=== PATIENT | male | born 1985 | race Hispanic/Latino ===

== ENCOUNTER 2018-02-26 11:26 | Emergency (ER) | payer OTHER | END 2018-02-26 12:00 | disposition home or self-care (01) | LOC: EDH 11:26 | DX: J06.9 Acute upper respiratory infection, unspecified (principal); F41.9 Anxiety disorder, unspecified | CPT/HCPCS: 99281 ==

== ENCOUNTER 2018-03-07 11:28 | Emergency (ER) | payer OTHER ==
[2018-03-07] MEDS ORDERED: BENZONATATE 100 MG CAPSULE PO ONE (13:03)
== END 2018-03-07 15:39 | disposition home or self-care (01) ==
LOC: EDH 11:28
DX: R10.9 Unspecified abdominal pain (principal); R19.7 Diarrhea, unspecified; R05 Cough; F41.9 Anxiety disorder, unspecified; Z87.891 Personal history of nicotine dependence
CPT/HCPCS: 71045; 87804

== ENCOUNTER → 2018-10-05 | Outpatient (CLI) | payer MEDICAID | END | disposition home or self-care (01) | LOC: RAH 08:34 | PROVIDERS: ATTEND Internal Medicine | DX: K80.20 Calculus of gallbladder without cholecystitis without obstruction (principal); R16.0 Hepatomegaly, not elsewhere classified; K76.0 Fatty (change of) liver, not elsewhere classified | CPT/HCPCS: 76700 ==

== ENCOUNTER 2019-02-26 11:51 | Emergency (ER) | payer MEDICAID | END 2019-02-26 12:22 | disposition home or self-care (01) | LOC: EDH 11:51 | DX: J06.9 Acute upper respiratory infection, unspecified (principal); F41.9 Anxiety disorder, unspecified; Z87.891 Personal history of nicotine dependence ==

== ENCOUNTER 2019-04-10 12:49 | Emergency (ER) | payer MEDICAID ==
[2019-04-10 13:15] LABS: RAPID GROUP A STREP POSITIVE (NEGATIVE)
== END 2019-04-10 13:34 | disposition home or self-care (01) ==
LOC: EDH 12:49
DX: J02.0 Streptococcal pharyngitis (principal); F41.9 Anxiety disorder, unspecified
CPT/HCPCS: 36415; 71046; 76770; 80053; 81001; 83690; 85025; 87804; 87880; 96374; J1885

== ENCOUNTER 2019-04-10 23:06 | Emergency (ER) | payer MEDICAID ==
[2019-04-10 23:36] LABS: BILIRUBIN,URINE Negative (NEGATIVE); COLOR,URINE Yellow (YELLOW); GLUCOSE, URINE (UA) Negative (NEGATIVE); KETONES,URINE Negative (NEGATIVE); LEUKOCYTE ESTERASE ,URINE Negative (NEGATIVE); NITRATE,URINE Negative (NEGATIVE); OCCULT BLOOD,URINE Nonhemolyzed Trace (NEGATIVE); PROTEIN,URINE Negative (NEGATIVE)
[2019-04-10 23:41] LABS: APPEARANCE,URINE CLEAR (CLEAR)
[2019-04-11 00:01] LABS: BACTERIA,URINE Few /HPF (None Seen); CALCIUM OXALATE CRYSTALS,UR Moderate /LPF (None Seen); WBC,URINE 0-1 /HPF (0-1)
[2019-04-11] MEDS ORDERED: ACETAMINOPHEN EXTRA STRENGTH 500 MG TABLET ONE (00:05)
[2019-04-11 00:08] LABS: POTASSIUM 3.4 mmol/L (3.5-5.1)
[2019-04-11 00:10] LABS: ALBUMIN 3.8 g/dL (3.5-5.0); BILIRUBIN,TOTAL 0.5 mg/dL (0.2-1.0)
[2019-04-11 00:13] LABS: EOSINOPHILS % (AUTO) 3.4 % (0.0-8.0); HEMATOCRIT 44.8 % (42-54); LYMPHOCYTES % (AUTO) 25.7 % (21.0-51.0); MEAN CORPUSCULAR HEMOGLOBIN 28.2 pg (27.0-33.0); MEAN CORPUSCULAR HGB CONC 33.3 g/dL (32.0-36.0); MEAN CORPUSCULAR VOLUME 84.5 fL (79-99); MONOCYTES % (AUTO) 7.2 % (3.0-13.0); NEUTROPHILS % (AUTO) 62.7 % (40.0-77.0); PLATELET COUNT (AUTO) 201 K/uL (130-400); RED CELL DISTRIBUTION WIDTH 16.1 % (11.0-15.5); WHITE BLOOD COUNT (AUTO) 6.9 K/uL (4.8-10.8)
[2019-04-11] MEDS ORDERED: BENZONATATE 100 MG CAPSULE PO ONE (01:17)
[2019-04-11] MEDS ORDERED: KETOROLAC TROMETHAMINE 30MG/ML ONE (01:17)
== END 2019-04-11 02:28 | disposition home or self-care (01) ==
LOC: EDH 23:06
DX: J02.0 Streptococcal pharyngitis (principal); R10.9 Unspecified abdominal pain; F41.9 Anxiety disorder, unspecified
CPT/HCPCS: 36415; 71046; 76770; 80053; 81001; 83690; 85025; 96374; 99285; J1885

== ENCOUNTER 2019-06-07 15:38 | Emergency (ER) | payer MEDICAID ==
[2019-06-07] MEDS ORDERED: SODIUM CHLORIDE 0.9% 1000ML 1,000 ML IV ONE (17:01)
[2019-06-07 17:42] LABS: BASOPHILS % (AUTO) 0.6 % (0.0-5.0); EOSINOPHILS % (AUTO) 1.8 % (0.0-8.0); LYMPHOCYTES % (AUTO) 25.8 % (21.0-51.0); MEAN CORPUSCULAR HEMOGLOBIN 28.5 pg (27.0-33.0); MEAN CORPUSCULAR HGB CONC 33.3 g/dL (32.0-36.0); MEAN CORPUSCULAR VOLUME 85.6 fL (79-99); MONOCYTES % (AUTO) 6.8 % (3.0-13.0); NUCLEATED RED BLOOD CELLS 0.3 % (0.0-0.19); PLATELET COUNT (AUTO) 303 K/uL (130-400); RED BLOOD CELL COUNT(AUTO) 5.61 MIL/uL (4.50-6.20); RED CELL DISTRIBUTION WIDTH 15.8 % (11.0-15.5)
[2019-06-07 17:59] LABS: CREATININE 0.8 mg/dL (0.5-1.5); POTASSIUM 3.2 mmol/L (3.5-5.1)
== END 2019-06-07 18:28 | disposition home or self-care (01) ==
LOC: EDH 15:38
DX: T67.5XXA Heat exhaustion, unspecified, initial encounter (principal); F41.9 Anxiety disorder, unspecified; Z87.891 Personal history of nicotine dependence; X58.XXXA Exposure to other specified factors, initial encounter; Y93.89 Activity, other specified; Y92.89 Other specified places as the place of occurrence of the external cause; Y99.8 Other external cause status
CPT/HCPCS: 36415; 71045; 80048; 82948; 85025; 87804 ×2; 93005; 96360; 99285; J7030

== ENCOUNTER 2019-08-12 13:45 | Emergency (ER) | payer MEDICAID | END 2019-08-12 14:59 | disposition home or self-care (01) | LOC: EDH 13:45 | DX: J20.9 Acute bronchitis, unspecified (principal); F41.9 Anxiety disorder, unspecified ==

== ENCOUNTER 2019-10-24 22:41 | Emergency (ER) | payer MEDICAID ==
[2019-10-25 00:09] LABS: BASOPHILS % (AUTO) 0.7 % (0.0-5.0); EOSINOPHILS % (AUTO) 5.5 % (0.0-8.0); HEMATOCRIT 47.7 % (42-54); MEAN CORPUSCULAR HGB CONC 32.1 g/dL (32.0-36.0); MEAN CORPUSCULAR VOLUME 84.3 fL (79-99); MONOCYTES % (AUTO) 9.2 % (3.0-13.0); NEUTROPHILS % (AUTO) 56.9 % (40.0-77.0); PLATELET COUNT (AUTO) 222 K/uL (130-400); RED BLOOD CELL COUNT(AUTO) 5.66 MIL/uL (4.50-6.20); RED CELL DISTRIBUTION WIDTH 14.8 % (11.0-15.5)
[2019-10-25] MEDS ORDERED: SODIUM CHLORIDE 0.9% 1000ML 1,000 ML IV ONE (00:14)
[2019-10-25] MEDS ORDERED: KETOROLAC TROMETHAMINE 30MG/ML ONE (00:14)
[2019-10-25 00:20] LABS: CREATININE 0.8 mg/dL (0.5-1.5); POTASSIUM 3.5 mmol/L (3.5-5.1)
[2019-10-25 00:26] LABS: ALBUMIN 3.8 g/dL (3.5-5.0); BILIRUBIN,TOTAL 0.5 mg/dL (0.2-1.0); TOTAL PROTEIN, SERUM 7.2 g/dL (6.0-8.3)
[2019-10-25] MEDS ORDERED: ORPHENADRINE CITRATE 30 MG/ML ML ONE (02:34)
[2019-10-25] MEDS ORDERED: LIDOCAINE 5% TOPICAL PATCH TP ONE (02:35)
== END 2019-10-25 03:03 | disposition home or self-care (01) ==
LOC: EDH 22:41
DX: S39.012A Strain of muscle, fascia and tendon of lower back, initial encounter (principal); M62.838 Other muscle spasm; F41.9 Anxiety disorder, unspecified; V80.010A Animal-rider injured by fall from or being thrown from horse in noncollision accident, initial encounter; Y93.52 Activity, horseback riding; Y92.89 Other specified places as the place of occurrence of the external cause; Y99.8 Other external cause status
CPT/HCPCS: 36415; 72131; 80053; 85025; 96374; 96375; 99285; J1885; J2360; J7030

== ENCOUNTER → 2019-11-04 | Outpatient (CLI) | payer MEDICAID | END | disposition home or self-care (01) | LOC: SLP 19:25 | PROVIDERS: ATTEND Internal Medicine | DX: G47.33 Obstructive sleep apnea (adult) (pediatric) (principal) | CPT/HCPCS: 95810 ==

== ENCOUNTER 2020-11-29 05:55 | Emergency (ER) | payer MEDICAID ==
[2020-11-29] MEDS ORDERED: ONDANSETRON HCL 4 MG/2 ML VIAL ONE (06:26)
[2020-11-29] MEDS ORDERED: PROCHLORPERAZINE EDISYLATE 10 MG/2 ML VIAL ONE (06:27)
[2020-11-29 06:34] LABS: BASOPHILS % (AUTO) 0.9 % (0.0-5.0); EOSINOPHILS % (AUTO) 2.7 % (0.0-8.0); HEMATOCRIT 48.4 % (42-54); LYMPHOCYTES % (AUTO) 47.4 % (21.0-51.0); MEAN CORPUSCULAR HEMOGLOBIN 27.9 pg (27.0-33.0); MEAN CORPUSCULAR HGB CONC 32.9 g/dL (32.0-36.0); MEAN CORPUSCULAR VOLUME 85.1 fL (79-99); MONOCYTES % (AUTO) 6.4 % (3.0-13.0); NEUTROPHILS % (AUTO) 41.2 % (40.0-77.0); PLATELET COUNT (AUTO) 202 K/uL (130-400); RED BLOOD CELL COUNT(AUTO) 5.69 MIL/uL (4.50-6.20); RED CELL DISTRIBUTION WIDTH 15.2 % (11.0-15.5)
[2020-11-29 06:40] LABS: APPEARANCE,URINE Clear (CLEAR); BILIRUBIN,URINE Negative (NEGATIVE); COLOR,URINE Yellow (YELLOW); GLUCOSE, URINE (UA) Negative (NEGATIVE); KETONES,URINE Negative (NEGATIVE); LEUKOCYTE ESTERASE ,URINE Negative (NEGATIVE); NITRATE,URINE Negative (NEGATIVE); OCCULT BLOOD,URINE Negative (NEGATIVE); PROTEIN,URINE Negative (NEGATIVE); UROBILINOGEN,URINE 0.2 mg/dL (0.2-1.0)
[2020-11-29 06:44] LABS: ALBUMIN 3.9 g/dL (3.5-5.0); BILIRUBIN,TOTAL 0.5 mg/dL (0.2-1.0); POTASSIUM 3.9 mmol/L (3.5-5.1); TOTAL PROTEIN, SERUM 7.3 g/dL (6.0-8.3)
[2020-11-29] MEDS ORDERED: FAMOTIDINE/PF 20 MG/2 ML VIAL IV ONE (06:52)
== END 2020-11-29 07:32 | disposition home or self-care (01) ==
LOC: EDH 05:55
DX: K29.00 Acute gastritis without bleeding (principal); K80.50 Calculus of bile duct without cholangitis or cholecystitis without obstruction; F41.9 Anxiety disorder, unspecified
CPT/HCPCS: 36415; 74176; 80053; 81003; 84484; 85025; 96374; 96375; 99284; J0780; J2405; J3490

== ENCOUNTER 2021-02-06 17:36 | Emergency (ER) | payer MEDICAID ==
[2021-02-06] MEDS ORDERED: ACETAMINOPHEN-CODEINE 300/30MG TAB ONE (18:05)
[2021-02-06] MEDS ORDERED: IBUPROFEN 600 MG TABLET ONE (18:05)
[2021-02-06] MEDS ORDERED: AMOXICILLIN 500 MG CAPSULE PO ONE (18:05)
== END 2021-02-06 19:09 | disposition home or self-care (01) ==
LOC: EDH 17:36
DX: K02.9 Dental caries, unspecified (principal); K04.7 Periapical abscess without sinus; F41.9 Anxiety disorder, unspecified; Z72.0 Tobacco use; E66.9 Obesity, unspecified; Z68.43 Body mass index [BMI] 50.0-59.9, adult

== ENCOUNTER 2021-04-04 10:12 | Emergency (ER) | payer MEDICAID ==
[~2021-04-04] VITALS: Ht 157.5 cm; Wt 136.1 kg
[2021-04-04 10:15] VITALS: BP 126/74
[2021-04-04] MEDS ORDERED: SOLU-MEDROL 125MG/2ML VIAL IM SCH (11:45)
[2021-04-04] MEDS ORDERED: SOLU-MEDROL 40MG/ML 1ML IVP ONE (11:45)
[2021-04-04] MEDS ORDERED: ALBU8.5H8 IH (12:17)
[2021-04-04] MEDS ORDERED: AZIT500T PO (12:17)
== END 2021-04-04 14:18 | disposition home or self-care (01) ==
LOC: EDH 10:12
DX: J40 Bronchitis, not specified as acute or chronic (principal); E78.5 Hyperlipidemia, unspecified; E66.9 Obesity, unspecified
CPT/HCPCS: 96372; 99283; J2920

== ENCOUNTER 2021-05-25 04:59 | Emergency (ER) | payer MEDICAID ==
[~2021-05-25] VITALS: Ht 162.6 cm; Wt 133.8 kg
[~2021-05-25 04:59] MED LIST: ALBU8.5H8 IH; AZIT500T PO
[2021-05-25 05:12] VITALS: BP 141/88
[2021-05-25] MEDS ORDERED: CIPR-278 PO (10:58)
[2021-05-25] MEDS ORDERED: ACET1TAB25 PO (10:58)
== END 2021-05-25 06:52 | disposition left against medical advice (07) ==
LOC: EDH 04:59
DX: R10.9 Unspecified abdominal pain (principal); Z53.21 Procedure and treatment not carried out due to patient leaving prior to being seen by health care provider

== ENCOUNTER 2021-05-25 07:39 | Emergency (ER) | payer MEDICAID ==
[~2021-05-25] VITALS: Ht 162.6 cm; Wt 133.8 kg
[2021-05-25 07:40] VITALS: BP 151/92
[2021-05-25] MEDS ORDERED: ONDANSETRON 4MG INJ IVP SCH (08:30)
[2021-05-25] MEDS ORDERED: KETOROLAC 30MG VIAL (30MG/ML) IV SCH (08:30)
[2021-05-25] MEDS ORDERED: MORPHINE 5 MG/ML VIAL (5MG OR GREATER DOSE) IV SCH (08:30)
[2021-05-25 09:04] LABS: APPEARANCE,URINE CLOUDY (CLEAR); BILIRUBIN,URINE NEGATIVE (NEGATIVE); COLOR,URINE YELLOW (YELLOW); GLUCOSE, URINE (UA) NEGATIVE (NEGATIVE); KETONES,URINE 5 mg/dL (NEGATIVE); LEUKOCYTE ESTERASE ,URINE NEGATIVE (NEGATIVE); NITRATE,URINE NEGATIVE (NEGATIVE); OCCULT BLOOD,URINE NEGATIVE (NEGATIVE); PROTEIN,URINE TRACE mg/dL (NEGATIVE); UROBILINOGEN,URINE 0.2 mg/dL (0.2-1.0)
[2021-05-25 09:12] VITALS: BP 141/85
[2021-05-25 09:30] LABS: CALCIUM OXALATE CRYSTALS,UR Few /LPF (None Seen); URIC ACID CRYSTALS,URINE Few /LPF (None Seen)
[2021-05-25 09:31] LABS: AMORPHOUS SEDIMENT,UR Moderate /LPF (None Seen); BACTERIA,URINE Few /HPF (None Seen)
[2021-05-25 09:32] LABS: RBC,URINE None Seen /HPF (0-1); WBC,URINE 0-1 /HPF (0-1)
[2021-05-25 10:32] LABS: BASOPHILS % (AUTO) 0.8 % (0.0-5.0); EOSINOPHILS % (AUTO) 0.7 % (0.0-8.0); HEMATOCRIT 47.4 % (42-54); LYMPHOCYTES % (AUTO) 21.7 % (21.0-51.0); MEAN CORPUSCULAR HEMOGLOBIN 27.8 pg (27.0-33.0); MEAN CORPUSCULAR HGB CONC 32.3 g/dL (32.0-36.0); MONOCYTES % (AUTO) 4.8 % (3.0-13.0); NEUTROPHILS % (AUTO) 70.8 % (40.0-77.0); PLATELET COUNT (AUTO) 229 K/uL (130-400); RED BLOOD CELL COUNT(AUTO) 5.51 MIL/uL (4.50-6.20); RED CELL DISTRIBUTION WIDTH 14.7 % (11.0-15.5); WHITE BLOOD COUNT (AUTO) 7.3 K/uL (4.8-10.8)
[2021-05-25 10:39] LABS: CREATININE 0.8 mg/dL (0.5-1.5); POTASSIUM 3.4 mmol/L (3.5-5.1)
[2021-05-25 10:47] LABS: ALBUMIN 3.8 g/dL (3.5-5.0); BILIRUBIN,TOTAL 0.4 mg/dL (0.2-1.0); TOTAL PROTEIN, SERUM 7.3 g/dL (6.0-8.3)
[2021-05-25] MEDS ORDERED: ACET1TAB25 PO (10:58)
[2021-05-25] MEDS ORDERED: CIPR-278 PO (10:58)
== END 2021-05-25 12:03 | disposition home or self-care (01) ==
LOC: EDH 07:39
DX: K42.9 Umbilical hernia without obstruction or gangrene (principal); E86.0 Dehydration; E66.01 Morbid (severe) obesity due to excess calories; Z68.43 Body mass index [BMI] 50.0-59.9, adult; Z79.1 Long term (current) use of non-steroidal anti-inflammatories (NSAID); Z79.899 Other long term (current) drug therapy
CPT/HCPCS: 36415; 74176; 80053; 81001; 83690; 85025; 96374; 96375; 99284; J1885; J2270; J2405

== ENCOUNTER 2021-11-08 02:51 | Emergency (ER) | payer MEDICAID ==
[~2021-11-08] VITALS: Ht 157.5 cm; Wt 131.5 kg
[~2021-11-08 02:51] MED LIST changes: +ACET1TAB25 PO; +CIPR-278 PO
[2021-11-08 03:41] LABS: APPEARANCE,URINE Cloudy (CLEAR); BILIRUBIN,URINE Negative (NEGATIVE); COLOR,URINE Yellow (YELLOW); GLUCOSE, URINE (UA) Negative (NEGATIVE); KETONES,URINE Trace mg/dL (NEGATIVE); LEUKOCYTE ESTERASE ,URINE Negative (NEGATIVE); NITRATE,URINE Negative (NEGATIVE); OCCULT BLOOD,URINE Negative (NEGATIVE); PROTEIN,URINE Negative (NEGATIVE)
[2021-11-08 03:51] LABS: BACTERIA,URINE None Seen /HPF (None Seen); RBC,URINE None Seen /HPF (0-1); WBC,URINE 0-1 /HPF (0-1)
[2021-11-08 03:52] LABS: MUCUS,URINE Moderate LPF (None Seen); SQUAMOUS EPITHELIAL CELL,UR Few /HPF (0-2)
[2021-11-08 03:53] LABS: HYALINE CASTS, URINE 0-1 /LPF (0-1 /LPF)
[2021-11-08] MEDS ORDERED: ONDANSETRON 4MG INJ ONE (03:56)
[2021-11-08] MEDS ORDERED: KETOROLAC 30MG VIAL (30MG/ML) ONE (03:56)
[2021-11-08] MEDS ORDERED: 0.9%NACL 1000ML 1,000 ML IV ONE ×2 (03:57→04:00)
[2021-11-08] MEDS ORDERED: KETOROLAC 30MG VIAL (30MG/ML) IV ONE (04:00)
[2021-11-08] MEDS ORDERED: ONDANSETRON 4MG INJ IVP ONE (04:00)
[2021-11-08 04:03] LABS: BASOPHILS % (AUTO) 0.9 % (0.0-5.0); HEMATOCRIT 48.5 % (42-54); LYMPHOCYTES % (AUTO) 35.5 % (21.0-51.0); MEAN CORPUSCULAR HEMOGLOBIN 28.2 pg (27.0-33.0); MEAN CORPUSCULAR HGB CONC 32.6 g/dL (32.0-36.0); MEAN CORPUSCULAR VOLUME 86.5 fL (79-99); MONOCYTES % (AUTO) 7.1 % (3.0-13.0); NEUTROPHILS % (AUTO) 53.9 % (40.0-77.0); PLATELET COUNT (AUTO) 219 K/uL (130-400); RED BLOOD CELL COUNT(AUTO) 5.61 MIL/uL (4.50-6.20); RED CELL DISTRIBUTION WIDTH 14.6 % (11.0-15.5); WHITE BLOOD COUNT (AUTO) 6.6 K/uL (4.8-10.8)
[2021-11-08 04:11] LABS: CREATININE 0.9 mg/dL (0.5-1.5); POTASSIUM 3.4 mmol/L (3.5-5.1)
[2021-11-08 04:15] LABS: BILIRUBIN,TOTAL 0.4 mg/dL (0.2-1.0); TOTAL PROTEIN, SERUM 7.3 g/dL (6.0-8.3)
[2021-11-08 05:15] VITALS: BP 145/84
[2021-11-08] MEDS ORDERED: ACET1TAB25 PO (05:50)
== END 2021-11-08 06:00 | disposition home or self-care (01) ==
LOC: EDH 02:51
DX: K80.70 Calculus of gallbladder and bile duct without cholecystitis without obstruction (principal); Z79.899 Other long term (current) drug therapy
CPT/HCPCS: 36415; 76705; 80053; 81001; 83690; 85025; 96361 ×2; 96374; 96375; 99284; J1885; J2405; J7030

== ENCOUNTER 2022-02-07 08:37 | Emergency (ER) | payer OTHER, MEDICAID ==
[~2022-02-07] VITALS: Ht 167.6 cm; Wt 136.1 kg
[~2022-02-07 08:37] MED LIST changes: +ACET-2079 PO; -ACET1TAB25 PO
[2022-02-07 08:53] VITALS: BP 132/75
[2022-02-07] MEDS ORDERED: ACET-2079 PO (09:16)
== END 2022-02-07 09:21 | disposition home or self-care (01) ==
LOC: EDH 08:37
DX: M25.512 Pain in left shoulder (principal); E66.01 Morbid (severe) obesity due to excess calories; Z68.42 Body mass index [BMI] 45.0-49.9, adult; V49.3XXA Car occupant (driver) (passenger) injured in unspecified nontraffic accident, initial encounter; Y93.89 Activity, other specified; Y92.89 Other specified places as the place of occurrence of the external cause; Y99.8 Other external cause status

== ENCOUNTER 2022-03-22 05:47 | Emergency (ER) | payer MEDICAID, OTHER ==
[~2022-03-22] VITALS: Ht 167.6 cm; Wt 131.5 kg
[2022-03-22 06:18] LABS: BASOPHILS % (AUTO) 0.7 % (0.0-5.0); EOSINOPHILS % (AUTO) 2.4 % (0.0-8.0); HEMATOCRIT 50.1 % (42-54); LYMPHOCYTES % (AUTO) 45.5 % (21.0-51.0); MEAN CORPUSCULAR HEMOGLOBIN 26.9 pg (27.0-33.0); MEAN CORPUSCULAR HGB CONC 31.7 g/dL (32.0-36.0); MEAN CORPUSCULAR VOLUME 84.9 fL (79-99); MONOCYTES % (AUTO) 7.1 % (3.0-13.0); NEUTROPHILS % (AUTO) 43.7 % (40.0-77.0); PLATELET COUNT (AUTO) 222 K/uL (130-400); RED CELL DISTRIBUTION WIDTH 14.6 % (11.0-15.5); WHITE BLOOD COUNT (AUTO) 6.7 K/uL (4.8-10.8)
[2022-03-22] MEDS ORDERED: ONDANSETRON 4MG INJ IVP ONE (06:30)
[2022-03-22] MEDS ORDERED: KETOROLAC 15MG/ML VIAL (15MG/ML) IV ONE (06:30)
[2022-03-22 06:35] LABS: CREATININE 0.9 mg/dL (0.5-1.5); POTASSIUM 3.8 mmol/L (3.5-5.1)
[2022-03-22 06:40] LABS: ALBUMIN 3.9 g/dL (3.5-5.0); BILIRUBIN,TOTAL 0.6 mg/dL (0.2-1.0); TOTAL PROTEIN, SERUM 7.2 g/dL (6.0-8.3)
[2022-03-22 06:41] LABS: APPEARANCE,URINE Clear (CLEAR); BILIRUBIN,URINE Negative (NEGATIVE); COLOR,URINE Yellow (YELLOW); GLUCOSE, URINE (UA) Negative (NEGATIVE); KETONES,URINE Negative (NEGATIVE); LEUKOCYTE ESTERASE ,URINE Negative (NEGATIVE); NITRATE,URINE Negative (NEGATIVE); OCCULT BLOOD,URINE Negative (NEGATIVE); PH,URINE 5.5 (5.0-8.0); PROTEIN,URINE Negative (NEGATIVE)
[2022-03-22] MEDS ORDERED: ACET-2079 PO (06:48)
[2022-03-22 06:49] VITALS: BP 139/88
== END 2022-03-22 06:59 | disposition home or self-care (01) ==
LOC: EDH 05:47
DX: K80.50 Calculus of bile duct without cholangitis or cholecystitis without obstruction (principal); Z79.1 Long term (current) use of non-steroidal anti-inflammatories (NSAID)
CPT/HCPCS: 36415; 76705; 80053; 81003; 83690; 85025; 96374; 96375; 99284; J1885; J2405

== ENCOUNTER 2022-04-14 03:40 | Emergency (ER) | payer MEDICAID ==
[2022-04-14] MEDS ORDERED: SOLU-MEDROL 125MG VIAL IVP ONE (03:41)
[2022-04-14] MEDS ORDERED: ALBUTEROL 0.083% 2.5 MG/3 ML INH IH ONE (03:41)
[2022-04-14] MEDS ORDERED: KCL 20 MEQ ERTAB PO ONE (03:41)
[2022-04-14] MEDS ORDERED: IPRATROPIUM/ALBUTEROL SULFATE 3 ML SOLUTION IH ONE (03:41)
[2022-04-14 12:25] LABS: BASOPHILS % (AUTO) 0.7 % (0.0-5.0); HEMATOCRIT 48.9 % (42-54); LYMPHOCYTES % (AUTO) 45.6 % (21.0-51.0); MEAN CORPUSCULAR HEMOGLOBIN 27.4 pg (27.0-33.0); MEAN CORPUSCULAR HGB CONC 32.7 g/dL (32.0-36.0); MEAN CORPUSCULAR VOLUME 83.7 fL (79-99); MONOCYTES % (AUTO) 5.9 % (3.0-13.0); PLATELET COUNT (AUTO) 220 K/uL (130-400); RED BLOOD CELL COUNT(AUTO) 5.84 MIL/uL (4.50-6.20); RED CELL DISTRIBUTION WIDTH 14.8 % (11.0-15.5); WHITE BLOOD COUNT (AUTO) 7.7 K/uL (4.8-10.8)
[2022-04-14 12:27] LABS: B-TYPE NATRIURETIC PEPTIDE 9 pg/mL (0-100)
[2022-04-14 12:28] LABS: ALBUMIN 3.8 g/dL (3.5-5.0); BILIRUBIN,TOTAL 0.5 mg/dL (0.2-1.0); CREATININE 0.8 mg/dL (0.5-1.5); MAGNESIUM 2.1 mg/dL (1.80-2.40); POTASSIUM 3.3 mmol/L (3.5-5.1); TOTAL PROTEIN, SERUM 6.9 g/dL (6.0-8.3)
[2022-04-15 09:21] LABS: ABG BASE EXCESS -2.4 mmol/L (-2.0-3.0); ABG HCO3 22.7 mmol/L (21.0-28.0); ABG OXYGEN SATURATION 84.2 % (95.0-99.0); ABG PCO2 40 mmHg (35-48)
== END 2022-04-14 08:04 | disposition left against medical advice (07) ==
LOC: EDH 03:40
DX: J96.91 Respiratory failure, unspecified with hypoxia (principal); Z20.822 Contact with and (suspected) exposure to COVID-19
CPT/HCPCS: 36415; 71045; 80053; 82550; 82803; 83735; 83880; 84484; 85025; 87635; 87804 ×2; 93005; 94640; 96374; 99285; C9803; J2930

== ENCOUNTER 2022-09-17 02:35 | Emergency (ER) | payer MEDICAID, OTHER ==
[~2022-09-17] VITALS: Ht 157.5 cm; Wt 135.2 kg
[~2022-09-17 02:35] MED LIST changes: +CILOOO OD; +DICL50TA9 PO; +TIZA4CAP8 PO
[2022-09-17 03:44] LABS: BASOPHILS % (AUTO) 0.5 % (0.0-5.0); HEMATOCRIT 45.5 % (42-54); LYMPHOCYTES % (AUTO) 31.6 % (21.0-51.0); MEAN CORPUSCULAR HEMOGLOBIN 27.6 pg (27.0-33.0); MEAN CORPUSCULAR HGB CONC 32.5 g/dL (32.0-36.0); MEAN CORPUSCULAR VOLUME 84.7 fL (79-99); MONOCYTES % (AUTO) 7.2 % (3.0-13.0); NEUTROPHILS % (AUTO) 56.9 % (40.0-77.0); PLATELET COUNT (AUTO) 196 K/uL (130-400); RED BLOOD CELL COUNT(AUTO) 5.37 MIL/uL (4.50-6.20); RED CELL DISTRIBUTION WIDTH 14.4 % (11.0-15.5); WHITE BLOOD COUNT (AUTO) 6.4 K/uL (4.8-10.8)
[2022-09-17 03:45] LABS: APPEARANCE,URINE CLEAR (CLEAR); BILIRUBIN,URINE NEGATIVE (NEGATIVE); COLOR,URINE LIGHT-YELLOW (YELLOW); GLUCOSE, URINE (UA) NEGATIVE (NEGATIVE); KETONES,URINE NEGATIVE (NEGATIVE); LEUKOCYTE ESTERASE ,URINE NEGATIVE Leu/uL (NEGATIVE); NITRATE,URINE NEGATIVE (NEGATIVE); OCCULT BLOOD,URINE NEGATIVE (NEGATIVE); PROTEIN,URINE NEGATIVE (NEGATIVE); UROBILINOGEN,URINE 0.2 mg/dL (0.2-1.0)
[2022-09-17 03:52] LABS: CREATININE 0.8 mg/dL (0.5-1.5); POTASSIUM 3.4 mmol/L (3.5-5.1)
[2022-09-17 03:57] LABS: ALBUMIN 3.5 g/dL (3.5-5.0); TOTAL PROTEIN, SERUM 6.9 g/dL (6.0-8.3)
[2022-09-17] MEDS ORDERED: ONDANSETRON 4MG INJ IVP ONE (04:00)
[2022-09-17] MEDS ORDERED: MORPHINE 2 MG SYG IVP ONE (04:00)
[2022-09-17] MEDS ORDERED: IBUP-1493 PO (06:21)
[2022-09-17] MEDS ORDERED: ONDA-104 PO (06:21)
[2022-09-17 06:37] VITALS: BP 125/78
== END 2022-09-17 06:42 | disposition home or self-care (01) ==
LOC: EDH 02:35
DX: K80.20 Calculus of gallbladder without cholecystitis without obstruction (principal); Z79.899 Other long term (current) drug therapy; Z98.890 Other specified postprocedural states
CPT/HCPCS: 99285; 96374; 76705; 96375; 82150; 82550; 84484; 80053; 83690; 85025; 81003; 36415; 93005; J2405

== ENCOUNTER 2022-10-13 19:27 | Emergency (ER) | payer BC, MEDICAID ==
[~2022-10-13] VITALS: Ht 162.6 cm; Wt 131.5 kg
[~2022-10-13 19:27] MED LIST changes: +IBUP-1493 PO; +ONDA-104 PO
[2022-10-13] MEDS ORDERED: IBUP-1493 PO (21:43)
[2022-10-13] MEDS ORDERED: AZIT500T2 PO (21:43)
[2022-10-13 22:02] VITALS: BP 124/72
== END 2022-10-13 22:04 | disposition home or self-care (01) ==
LOC: EDH 19:27
DX: J06.9 Acute upper respiratory infection, unspecified (principal); J02.9 Acute pharyngitis, unspecified; Z20.822 Contact with and (suspected) exposure to COVID-19
CPT/HCPCS: 99283; 87635; 87880; 87804 ×2; C9803

== ENCOUNTER 2022-11-28 11:43 | Emergency (ER) | payer BC, MEDICAID ==
[~2022-11-28] VITALS: Ht 167.6 cm; Wt 133.8 kg
[~2022-11-28 11:43] MED LIST changes: -ACET-2079 PO; -ALBU8.5H8 IH; -AZIT500T PO; +AZIT500T2 PO; -CILOOO OD; -CIPR-278 PO; -DICL50TA9 PO; -ONDA-104 PO; -TIZA4CAP8 PO
[2022-11-28 12:22] LABS: BASOPHILS % (AUTO) 0.5 % (0.0-5.0); EOSINOPHILS % (AUTO) 1.4 % (0.0-8.0); HEMATOCRIT 47.3 % (42-54); LYMPHOCYTES % (AUTO) 26.6 % (21.0-51.0); MEAN CORPUSCULAR HEMOGLOBIN 27.8 pg (27.0-33.0); MEAN CORPUSCULAR VOLUME 84.3 fL (79-99); MONOCYTES % (AUTO) 4.8 % (3.0-13.0); NEUTROPHILS % (AUTO) 65.9 % (40.0-77.0); PLATELET COUNT (AUTO) 247 K/uL (130-400); RED BLOOD CELL COUNT(AUTO) 5.61 MIL/uL (4.50-6.20); RED CELL DISTRIBUTION WIDTH 14.6 % (11.0-15.5); WHITE BLOOD COUNT (AUTO) 8.5 K/uL (4.8-10.8)
[2022-11-28] MEDS ORDERED: 0.9%NACL 1000ML 2,000 ML IV ONE (13:00)
[2022-11-28 13:09] LABS: CREATININE 0.7 mg/dL (0.5-1.5); POTASSIUM 3.8 mmol/L (3.5-5.1)
[2022-11-28 13:13] LABS: ALBUMIN 3.9 g/dL (3.5-5.0); TOTAL PROTEIN, SERUM 7.4 g/dL (6.0-8.3)
[2022-11-28] MEDS ORDERED: FAMO20TA8 PO (13:51)
[2022-11-28 13:54] VITALS: BP 142/87
== END 2022-11-28 14:07 | disposition home or self-care (01) ==
LOC: EDH 11:43
DX: K80.20 Calculus of gallbladder without cholecystitis without obstruction (principal); K76.0 Fatty (change of) liver, not elsewhere classified; Z98.890 Other specified postprocedural states
CPT/HCPCS: 99284; 96360; 76705; 96361; 84484; 80053; 83690; 85025; 36415; 93005; J7030 ×2

== ENCOUNTER → 2023-01-15 | Outpatient (CLI) | payer BC, MEDICAID ==
[~2023-01-15] MED LIST changes: +FAMO20TA8 PO
[2023-01-15 16:20] LABS: BASOPHILS % (AUTO) 0.7 % (0.0-5.0); EOSINOPHILS % (AUTO) 2.6 % (0.0-8.0); HEMATOCRIT 46.8 % (42-54); LYMPHOCYTES % (AUTO) 30.4 % (21.0-51.0); MEAN CORPUSCULAR HGB CONC 32.7 g/dL (32.0-36.0); MEAN CORPUSCULAR VOLUME 85.6 fL (79-99); MONOCYTES % (AUTO) 7.1 % (3.0-13.0); PLATELET COUNT (AUTO) 264 K/uL (130-400); RED BLOOD CELL COUNT(AUTO) 5.47 MIL/uL (4.50-6.20); RED CELL DISTRIBUTION WIDTH 14.6 % (11.0-15.5); WHITE BLOOD COUNT (AUTO) 7.6 K/uL (4.8-10.8)
[2023-01-15 16:47] LABS: ALBUMIN 3.9 g/dL (3.5-5.0); CREATININE 0.8 mg/dL (0.5-1.5); POTASSIUM 3.8 mmol/L (3.5-5.1); TOTAL PROTEIN, SERUM 7.5 g/dL (6.0-8.3)
[2023-01-15 16:51] LABS: HEMOGLOBIN A1C 5.7 % (4.0-6.0)
== END | disposition home or self-care (01) ==
LOC: LAB 15:18
PROVIDERS: ATTEND Student in an Organized Health Care Education/Training Program
DX: Z00.00 Encounter for general adult medical examination without abnormal findings (principal); I51.7 Cardiomegaly
CPT/HCPCS: 36415; 80053; 80061; 83036; 85025

== ENCOUNTER 2023-02-02 12:57 | Emergency (ER) | payer BC, MEDICAID ==
[~2023-02-02] VITALS: Ht 167.6 cm; Wt 131.1 kg
[2023-02-02 13:17] VITALS: BP 113/46
[2023-02-02 13:35] LABS: BASOPHILS % (AUTO) 0.3 % (0.0-5.0); EOSINOPHILS % (AUTO) 0.6 % (0.0-8.0); HEMATOCRIT 49.6 % (42-54); LYMPHOCYTES % (AUTO) 9.7 % (21.0-51.0); MEAN CORPUSCULAR HEMOGLOBIN 27.4 pg (27.0-33.0); MEAN CORPUSCULAR HGB CONC 32.3 g/dL (32.0-36.0); MEAN CORPUSCULAR VOLUME 85.1 fL (79-99); NEUTROPHILS % (AUTO) 83.6 % (40.0-77.0); PLATELET COUNT (AUTO) 207 K/uL (130-400); RED BLOOD CELL COUNT(AUTO) 5.83 MIL/uL (4.50-6.20); RED CELL DISTRIBUTION WIDTH 15.1 % (11.0-15.5); WHITE BLOOD COUNT (AUTO) 6.4 K/uL (4.8-10.8)
[2023-02-02 13:49] LABS: ALBUMIN 3.9 g/dL (3.5-5.0); CREATININE 0.8 mg/dL (0.5-1.5); POTASSIUM 3.9 mmol/L (3.5-5.1); TOTAL PROTEIN, SERUM 7.4 g/dL (6.0-8.3)
[2023-02-02 14:09] LABS: AMPHET/METH SCREEN,URINE NEGATIVE (NEGATIVE); BARBITURATE SCREEN, URINE NEGATIVE (NEGATIVE); BENZODIAZEPINES SCREEN,URINE NEGATIVE (NEGATIVE); CANNABINOID SCREEN,URINE NEGATIVE (NEGATIVE); COCAINE SCREEN,URINE NEGATIVE (NEGATIVE); OPIATE SCREEN,URINE NEGATIVE (NEGATIVE); PHENCYCLIDINE SCREEN,URINE NEGATIVE (NEGATIVE)
== END 2023-02-02 15:56 | disposition home or self-care (01) ==
LOC: EDH 12:57
DX: R07.89 Other chest pain (principal); R19.7 Diarrhea, unspecified; Z79.899 Other long term (current) drug therapy; Z98.890 Other specified postprocedural states
CPT/HCPCS: 36415; 71045; 80053; 80305; 84484; 85025; 93005

== ENCOUNTER 2023-02-10 05:43 | Day surgery (SDC) | payer MEDICAID ==
[2023-02-05 12:35] LABS: BASOPHILS % (AUTO) 0.7 % (0.0-5.0); EOSINOPHILS % (AUTO) 3.2 % (0.0-8.0); HEMATOCRIT 46.5 % (42-54); LYMPHOCYTES % (AUTO) 29.7 % (21.0-51.0); MEAN CORPUSCULAR HEMOGLOBIN 27.7 pg (27.0-33.0); MEAN CORPUSCULAR HGB CONC 32.7 g/dL (32.0-36.0); MEAN CORPUSCULAR VOLUME 84.9 fL (79-99); MONOCYTES % (AUTO) 7.1 % (3.0-13.0); NEUTROPHILS % (AUTO) 58.6 % (40.0-77.0); PLATELET COUNT (AUTO) 215 K/uL (130-400); RED BLOOD CELL COUNT(AUTO) 5.48 MIL/uL (4.50-6.20); RED CELL DISTRIBUTION WIDTH 14.6 % (11.0-15.5); WHITE BLOOD COUNT (AUTO) 5.9 K/uL (4.8-10.8)
[2023-02-05 12:37] VITALS: BP 128/79
[2023-02-05 12:37] LABS: BILIRUBIN,URINE NEGATIVE (NEGATIVE); COLOR,URINE YELLOW (YELLOW); GLUCOSE, URINE (UA) NEGATIVE (NEGATIVE); KETONES,URINE NEGATIVE (NEGATIVE); LEUKOCYTE ESTERASE ,URINE NEGATIVE Leu/uL (NEGATIVE); NITRATE,URINE NEGATIVE (NEGATIVE); OCCULT BLOOD,URINE NEGATIVE (NEGATIVE); PH,URINE 5.5 (5.0-8.0); PROTEIN,URINE 20 mg/dL (NEGATIVE)
[2023-02-05 12:42] LABS: CREATININE 0.9 mg/dL (0.5-1.5); INR 0.96 (0.85-1.15); POTASSIUM 3.6 mmol/L (3.5-5.1); PROTHROMBIN TIME 10.5 SEC (9.6-11.6)
[2023-02-05 12:44] LABS: PARTIAL THROMBOPLASTIN TIME 28.6 SEC (26.3-35.5)
[2023-02-05 12:50] LABS: APPEARANCE,URINE SLIGHTLY CLOUDY (CLEAR)
[2023-02-05 13:04] LABS: B-TYPE NATRIURETIC PEPTIDE 9 pg/mL (0-100)
[~2023-02-10] VITALS: Ht 167.6 cm; Wt 6.1 kg
[2023-02-10] VITALS (13 sets, daily range): BP systolic 108–150; BP diastolic 68–93
[2023-02-10] MEDS ORDERED: 0.9%NACL 1000ML 1,000 ML IV ONE (06:13)
[2023-02-10] MEDS ORDERED: NITROGLYCERIN 50MG VIAL ONE (07:20)
[2023-02-10] MEDS ORDERED: VERAPAMIL HCL 2.5 MG/ML VIAL ONE (07:20)
[2023-02-10] MEDS ORDERED: IOHEXOL-350 75 ML VIAL IV ONE (07:20)
[2023-02-10] MEDS ORDERED: IOHEXOL-350 50ML VIAL IV ONE (07:20)
[2023-02-10] MEDS ORDERED: HEPARIN 10,000 UNIT/10ML (1,000 UNIT/ML) VIAL ONE (07:20)
[2023-02-10] MEDS ORDERED: FENTANYL CITRATE PF 50 MCG/1 ML 2ML VIAL ONE (07:20)
[2023-02-10] MEDS ORDERED: MIDAZOLAM HCL 1 MG/ML 2ML VIAL ONE (07:20)
[2023-02-10] MEDS ORDERED: LIDOCAINE HCL 400MG/20ML VIAL ONE (07:20)
[2023-02-10] MEDS ORDERED: DEXTROSE 50%-WATER 50 ML DISP.SYRIN IV PRN (08:30)
[2023-02-10] MEDS ORDERED: GLUCAGON 1MG KIT 1 MG ML IM PRN (08:30)
== END 2023-02-10 11:05 | disposition home or self-care (01) ==
LOC: DAH 05:43
PROVIDERS: ATTEND Student in an Organized Health Care Education/Training Program
DX: R94.31 Abnormal electrocardiogram [ECG] [EKG] (principal); I35.0 Nonrheumatic aortic (valve) stenosis; I20.9 Angina pectoris, unspecified; I25.2 Old myocardial infarction; I51.7 Cardiomegaly; E78.5 Hyperlipidemia, unspecified; Z79.899 Other long term (current) drug therapy; Z79.01 Long term (current) use of anticoagulants
CPT/HCPCS: 80048; 83880; 85025; 85610; 85730; 81003; 36415; 71045; 93005; 93458; C1769; C1894; J3010; J3490 ×3; J7030; J1644 ×2; J2250; Q9967 ×2; A4215; A4222; A4221; A4663; A4216; A6258; A4606; A4223 ×3; 99156; 99157

== ENCOUNTER 2023-07-04 02:35 | Emergency (ER) | payer MEDICAID ==
[~2023-07-04] VITALS: Ht 167.6 cm; Wt 140.6 kg
[2023-07-04] MEDS ORDERED: KETOROLAC 60 MG VIAL (30MG/ML) IM ONE (03:30)
[2023-07-04 05:21] VITALS: BP 125/78; PULSE 84; RESP 18; O2SAT 98
== END 2023-07-04 05:30 | disposition home or self-care (01) ==
LOC: EDH 02:35
DX: S70.02XA Contusion of left hip, initial encounter (principal); W06.XXXA Fall from bed, initial encounter; Y93.9 Activity, unspecified; Y92.89 Other specified places as the place of occurrence of the external cause; Y99.8 Other external cause status
CPT/HCPCS: 99284; 73502; 72100; 96372; 72170; J1885

== ENCOUNTER 2023-09-02 23:38 | Emergency (ER) | payer MEDICAID, OTHER ==
[~2023-09-02] VITALS: Ht 167.6 cm; Wt 130.2 kg
[2023-09-03 00:08] VITALS: BP 138/64; PULSE 74; RESP 18; O2SAT 98
[2023-09-03] MEDS ORDERED: BROM118S48 PO (00:46)
[2023-09-03] MEDS ORDERED: GUAIFENESIN-CODEINE 5 ML SYRUP PO ONE (01:00)
== END 2023-09-03 01:00 | disposition home or self-care (01) ==
LOC: EDH 23:41
DX: J06.9 Acute upper respiratory infection, unspecified (principal); Z98.890 Other specified postprocedural states

== ENCOUNTER 2023-09-28 12:48 | Emergency (ER) | payer OTHER ==
[~2023-09-28] VITALS: Ht 167.6 cm; Wt 135.2 kg
[~2023-09-28 12:48] MED LIST changes: -AZIT500T2 PO; +BROM118S48 PO; -FAMO20TA8 PO; -IBUP-1493 PO
[2023-09-28] MEDS ORDERED: DIPH,PERTUSS(ACELL),TET VAC/PF 0.5 ML VIAL IM ONE (15:30)
[2023-09-28] MEDS ORDERED: IBUPROFEN 800 MG TAB PO ONE (15:30)
[2023-09-28] MEDS ORDERED: LIDOCAINE HCL 1% 20 ML VIAL INJ SCH (15:30)
[2023-09-28] MEDS ORDERED: MUPI22OI2 TP (17:33)
[2023-09-28] MEDS ORDERED: BACITRACIN 1 EACH PACKET TP ONE (17:39)
[2023-09-28 17:43] VITALS: BP 150/87; PULSE 92; RESP 18; O2SAT 99
== END 2023-09-28 18:10 | disposition home or self-care (01) ==
LOC: EDH 12:48
DX: S61.411A Laceration without foreign body of right hand, initial encounter (principal); W45.8XXA Other foreign body or object entering through skin, initial encounter; Y93.89 Activity, other specified; Y92.89 Other specified places as the place of occurrence of the external cause; Y99.8 Other external cause status
CPT/HCPCS: 12002; 73130; 90471; 90715

== ENCOUNTER 2024-03-27 10:47 | Emergency (ER) | payer MEDICAID, OTHER ==
[~2024-03-27] VITALS: Ht 157.5 cm; Wt 135.2 kg
[~2024-03-27 10:47] MED LIST changes: +MUPI22OI2 TP
[2024-03-27] MEDS: KETOROLAC 30MG VIAL (30MG/ML) IM ONE (13:05)
[2024-03-27 16:40] VITALS: BP 128/71; PULSE 76; RESP 18; O2SAT 98
== END 2024-03-27 16:41 | disposition home or self-care (01) ==
LOC: EDH 10:47
DX: G89.29 Other chronic pain (principal); M79.661 Pain in right lower leg; E66.01 Morbid (severe) obesity due to excess calories; Z68.43 Body mass index [BMI] 50.0-59.9, adult
CPT/HCPCS: 99285; 93971; 73610; 96372; J1885

== ENCOUNTER 2024-12-05 13:41 | Emergency (ER) | payer SELFPAY ==
[~2024-12-05] VITALS: Ht 167.6 cm; Wt 136.1 kg
--- NOTE | 2024-12-05 15:06 | ERN ---
General Chief Complaint: Lower Extremity Pain/Injury Stated Complaint: RT BACK LEG PAIN Source: patient History of Present Illness Initial Comments Patient is a 39-year-old morbidly obese male who presented to the emergency room with a 1 year history of right lower extremity pain. Pain is sharp in character , located in the right knee and radiates down the right calf. Rates the pain as a 10/10, intermittent in frequency and mildly relieved by taking analgesics. Pain is made worse by weight-bearing, walking or standing. It is relieved by rest. Patient states that the pain is lowest on waking up in the morning but gets worse as the day progresses. Denies any redness, swelling , warmth, numbness, tingling or weakness. Patient denies any recent travel or prolonged immobilization. Denies prior history of blood clots vascular disease or diabetes. States that he has never had this kind of pain in the past. Denies any chest pain, shortness of breath, palpitations, fever, chills, nausea, vomiting or change in bowel movements. Allergies: Coded Allergies: No Known Drug Allergies (Unverified Allergy, Unknown, 04/11/19) Home Meds Active Scripts Ketorolac Tromethamine (Toradol) 10 Mg Tab, 1 TAB PO TID for pain for 5 Days, #15 TAB 0 Refills Prov:GABBY ROCHE MD 12/05/24 Orphenadrine Citrate (Norflex) 100 Mg Srtab, 1 TAB PO [id number] PRN for pain for 30 Days, #60 TAB 0 Refills Prov:GABBY ROCHE MD 12/05/24 Mupirocin (Mupirocin Ointment) 2 % Oint, 1 APPL TP BID, #1 TUBE 0 Refills Prov:LESLEY RAMIREZ METAL FURNITURE ASSEMBLER 09/28/23 D-Methorphan Hb/P-Epd HCl/Bpm (Bromfed Dm Cough Syrup) 2 Mg-30 Mg-10 Mg/5 Ml Syrup, 10 ML PO Q6HPRN PRN for COUGH/COLD SYMPTOMS, #240 ML Prov:TOSIN CARRILLO METAL FURNITURE ASSEMBLER 09/03/23 Past Medical History Past Medical History: No Pertinent History Medical History Other: MORBID OBESITY Past Surgical History: None Surgical History Other: L EAR SURGERY Family History Family History: CAD, DM Social History Social History: Negative, Lives with family, Other ROS Dictation Constitutional: No appetite loss, No fevers, chills , No night sweats, No weakness, fatigue Eye: No vision change, No redness, pain or discharge ENT: No hearing loss, ear pain or discharge, No nose bleeds, No sore throat, Neck: No swelling. pain or stiffness Respiratory: No cough, shortness of breath, wheezing Cardiovascular: No chest pain,, palpitations, dyspnea, No edema Gastrointestinal: No abdominal pain, No nausea, vomiting, No diarrhea, consti pation Genitourinary: No painful urination, No blood in urine, No urinary incontinence, No frequency or urgency Musculoskeletal: Right lower extremity pain Neurological: No numbness, tingling, No weakness, tremors or seizures Psychiatric: : No depression, No anxiety, No sleep disturbance, No Memory ch anges Lymphatic: No easy bruising, No bleeding tendencies , No swollen lymph nodes A 13-point Review of Systems was assessed, all of which are negative except for HPI or as indicated above. Physical Exam Physical Exam Dictation General: Alert & Oriented, No acute distress. EENT: No conjunctival redness or discharge noted Tympanic membranes are clear, Normal hearing, Oral mucosa is moist, No pharyngeal erythema, No nasal discharge, No oral lesions. Neck: Non-tender, No jugular vein distention, No lymphadenopathy, No thyromegaly, Supple. Respiratory: Lungs are clear to auscultation, Respirations are non-labored, Breath sounds are equal, No chest wall tenderness, _. Cardiovascular: Normal rate, Normal rhythm, No murmur, Good pulses equal in all extremities, Normal peripheral perfusion, No edema. Gastrointestinal: Soft, Non-tender, Non-distended, Normal bowel sounds, No organomegaly, _. Musculoskeletal: Normal range of motion, Normal strength, Tenderness, Swelling, No deformity, Normal gait. Integumentary: Warm, Dry, [place], Intact, No pallor, No rash. Neurologic: Alert, Oriented x4, Normal sensory, No focal defects Psychiatric: Cooperative, Appropriate mood & affect, Normal judgement, Non- suicidal. MDM Potential differential diagnoses include: *Muscle strain * Morbid obesity Assessment: I will order Doppler ultrasound of the RLE in order to rule out a DVT and will administer medications according to the patient's complaint. Will order Ketorolac 30mg IM for adequate pain control. I will re-evaluate the patient after treatment and diagnostic exams have returned to determine whether they require further testing, can be safely discharged home, or need admission for further treatment and evaluation. Given the social determinants of health affecting care, including literacy, access to medical care, prescription drug management, and mykc-geo-zaohcyg drugs, I will ensure that treatment plans are tailored accordingly. Revaluation : Patient is alert and oriented. States he feels a lot better . Doppler ultrasound was negative for a DVT. Disposition: Will discharge patient at this time with prescription of Norflex 100mg bid and Ketorolac 30mg PO PO and instructions to follow up with PCP for further evaluation and treatment. Attestation: Patient's case was discussed with the ER MD. Reviewed the documentation, medical decision making and treatment plan. Agrees with the findings and plan of care. ED Course Orders Procedure Category Date Status Time Us Venous Doppler US 12/05/24 Resulted Unilateral 14:48 Ketorolac PHA 12/05/24 Complete Tromethamine 30mg/Ml 15:00 *General Dc DS 12/05/24 Transmitted Instructions 15:59 Current Medications Medications (Trade) Dose Ordered Sig/Tamar Route PRN Reason Start Time Stop Time Status Last Admin Dose Admin Ketorolac Tromethamine (toRADol) 30 mg ONCE ONCE IM 12/05/24 15:00 12/05/24 15:01 DC 12/05/24 15:15 Vital Signs Date Time Temp Pulse Resp B/P (MAP) Pulse Ox O2 Delivery O2 Flow Rate FiO2 12/05/24 15:11 98.2 60 18 119/77 97 Room Air* 0 21 12/05/24 14:12 98.2 60 18 119/77 99 Room Air 0 DX & DISP Disposition: Discharge Departure Impression: Primary Impression: Muscle strain Additional Impression: Morbid obesity with BMI of 45.0-49.9, adult Critical Time: 30 minutes Condition: Stable Scripts Ketorolac Tromethamine (Toradol) 10 Mg Tab 1 TAB PO TID for pain for 5 Days, #15 TAB 0 Refills Prov: GABBY ROCHE MD 12/05/24 Orphenadrine Citrate (Norflex) 100 Mg Srtab 1 TAB PO [id number] PRN for pain for 30 Days, #60 TAB 0 Refills Prov: GABBY ROCHE MD 12/05/24 Additional Instructions: Discharge Instructions: *Follow up with your primary care physician in 2 - 3 days after discharge. *Continue all medications as prescribed. Do not discontinue or change dosages without consulting your PCP. *Gradually resume normal activities as tolerated. *Continue a balanced diet . Regular exercise and weight loss *Seek immediate medical attention if you experience chest pain, SOB or severe headache. *Smoking cessation is strongly advised. Resources for quitting smoking are available upon request. Referrals: SELF,REFERRAL (PCP) GABBY ROCHE MD Dec 05, 2024 15:06
[2024-12-05 15:11] VITALS: BP 119/77; PULSE 60; RESP 18; TEMP 98.2; O2SAT 97
[2024-12-05] MEDS: ketOROlac 30MG VIAL (30MG/ML) IM ONE (15:15)
--- NOTE | 2024-12-05 15:42 | HMCIMG ---
US VENOUS DOPPLER UNILATERAL HISTORY: Right lower extremity pain COMPARISON: None TECHNIQUE: Right lower extremity venous Doppler ultrasound study was performed. FINDINGS: The right common femoral, femoral, popliteal, and posterior tibial veins are visualized. Normal flow with augmentation and compressibilities are demonstrated. Right greater saphenous vein is patent. IMPRESSION: 1. No evidence of deep venous thrombosis is seen.
[2024-12-05] MEDS ORDERED: ORPH100 PO (15:56)
[2024-12-05] MEDS ORDERED: KETO10 PO (15:56)
== END 2024-12-05 17:22 | disposition home or self-care (01) ==
LOC: EDH 13:41
DX: S86.811A Strain of other muscle(s) and tendon(s) at lower leg level, right leg, initial encounter (principal); E66.01 Morbid (severe) obesity due to excess calories; Z68.42 Body mass index [BMI] 45.0-49.9, adult; Z79.1 Long term (current) use of non-steroidal anti-inflammatories (NSAID); X58.XXXA Exposure to other specified factors, initial encounter; Y93.89 Activity, other specified; Y92.89 Other specified places as the place of occurrence of the external cause; Y99.8 Other external cause status
CPT/HCPCS: 99285; 93971; 96372; J1885

== ENCOUNTER 2025-01-07 21:36 | Emergency (ER) | payer SELFPAY ==
[~2025-01-07] VITALS: Ht 162.6 cm; Wt 131.5 kg
[~2025-01-07 21:36] MED LIST changes: +KETO10 PO; +ORPH100 PO
[2025-01-07 21:44] VITALS: BP 142/65; PULSE 78; RESP 12; TEMP 98.5; O2SAT 98
[2025-01-07] MEDS: ketOROlac 30MG VIAL (30MG/ML) IM ONE (21:59)
[2025-01-07] MEDS ORDERED: IBUP-2077 PO (22:21)
--- NOTE | 2025-01-07 22:21 | ERN ---
ED Note History of Present Illness Stated Complaint: TOOTHACHE Chief Complaint: Tooth Ache/Pain Time Seen by MD: 21:54 Time Seen by Midlevel: 21:54 Dictation: The patient is a 39-year-old male with no past medical history who presents to the emergency department with complaints of left upper and lower tooth onset a month ago. Patient reports he went to his dentist and was told he needed his wisdom tooth removed. Reports they gave him ibuprofen would help with the symptoms but he ran out of the medication. Denies any fevers. Allergies: Coded Allergies: No Known Drug Allergies (Unverified Allergy, Unknown, 04/11/19) Home Meds Active Scripts Ibuprofen (Ibuprofen 800 mg Tab) 800 Mg Tab, 800 MG PO Q8H PRN for fever or pain for 30 Days, #30 TAB 0 Refills Prov:ABNER TREVINO MESS ATTENDANT 01/07/25 Ketorolac Tromethamine (Toradol) 10 Mg Tab, 1 TAB PO TID for pain for 5 Days, #15 TAB 0 Refills Prov:GABBY ROCHE MD 12/05/24 Orphenadrine Citrate (Norflex) 100 Mg Srtab, 1 TAB PO [id number] PRN for pain for 30 Days, #60 TAB 0 Refills Prov:GABBY ROCHE MD 12/05/24 Mupirocin (Mupirocin Ointment) 2 % Oint, 1 APPL TP BID, #1 TUBE 0 Refills Prov:LESLEY RAMIREZ MESS ATTENDANT 09/28/23 D-Methorphan Hb/P-Epd HCl/Bpm (Bromfed Dm Cough Syrup) 2 Mg-30 Mg-10 Mg/5 Ml Syrup, 10 ML PO Q6HPRN PRN for COUGH/COLD SYMPTOMS, #240 ML Prov:TOSIN CARRILLO MESS ATTENDANT 09/03/23 Past Medical History Past Medical History: No Pertinent History Additional Past Medical Hx: MORBID OBESITY Surgical History: None Surgical History Other: L EAR SURGERY Family History: CAD, DM Social History: Negative, Lives with family, Other RN Note Reviewed/Agreed w/PFSH: Yes Review of System Dictation Constitutional: Negative for fever,chills, and weight loss Eyes: Negative for injury, pain,redness, and discharge ENT: Negative for injury,pain or swelling positive for toothache Cardiovascular: Negative for chest pain, palpitations, and edema Respiratory: Negative for shortness of breath, cough, and wheezing, Abdomen/GI: Negative for abdominal pain, nausea, vomiting, diarrhea, and constipation Back: Negative for injury and pain : Negative for injury, bleeding and discharge MS/Extremity: Negative for injury and deformity Skin: Negative for rash, and discoloration Neuro: Negative for headache, weakness, numbness, tingling, and seizure Psych: Negative for suicide ideation, homicidal ideation, and hallucinations Initial Vital Sign VS Vital Signs Date Time Temp Pulse Resp B/P (MAP) Pulse Ox O2 Delivery O2 Flow Rate FiO2 01/07/25 21:37 98.6 73 18 159/93 96 Room Air 01/07/25 21:44 0 21 Physical Exam Dictation Vital Signs reviewed General Appearance: Alert, oriented x 3, no acute distress, well developed, nourished. Head and Face: non-traumatic. Eyes: PERRL, pink conjunctivas, eyelid no trauma, anterior chamber with arcus senilis. Ears: Pinnas intact and no signs of trauma or erythema ear canals clear and no discharge TM no erythema Nose: No discharge, no bleeding. Oropharynx: Mouth normal, tongue pink. No loose tooth, no abscess no wounds pharynx clear,no erythema, tonsils no exudates, no abscesses noted, mucous membrane moist Neck: Supple, non-tender, no thyromegaly, no masses, no JVD, no bruits Breast:Deferred Chest:No tenderness, no crepitus, no paradoxical movement, no retractions Lungs:Clear, well-ventilated, symmetric, no rales, no wheezing, no rhonchi, no stridor, good breath sounds bilaterally Heart: Regular rate, regular rhythm, no murmur, no gallops Vascular: no peripheral edema, Abdomen: Soft, positive bowel sounds, nondistended, no guarding, nontender, no rebound, no masses no hepatomegaly, no splenomegaly, no Bui's sign, no hernias. Rectal: Deferred Genital: Deferred Neurological: Normal speech, motor function intact, sensory function intact Musculoskeletal: Neck nontender, full range of motion, back nontender, full range of motion, Extremities: nontender, full range of motion Skin: Color pink, dry, no turgor, no rash, no lacerations, no abrasions, no contusions. Lymphatic: Deferred Results (Laboratory/Radiology) Labs Reviewed?: Yes ED Course ED Course Orders Procedure Category Date Status Time Ketorolac PHA 01/07/25 Complete Tromethamine 30mg/Ml 22:00 Current Medications Medications (Trade) Dose Ordered Sig/Tamar Route PRN Reason Start Time Stop Time Status Last Admin Dose Admin Ketorolac Tromethamine (toRADol) 30 mg ONCE ONCE IM 01/07/25 22:00 01/07/25 22:01 DC 01/07/25 21:59 Vital Signs Date Time Temp Pulse Resp B/P (MAP) Pulse Ox O2 Delivery O2 Flow Rate FiO2 01/07/25 21:44 98.4 78 12 142/65 98 Room Air* 0 21 01/07/25 21:37 98.6 73 18 159/93 96 Room Air Medical Decision Making MDM The patient is a 39-year-old male with no past medical history who presents to the emergency department with complaints of left upper and lower tooth onset a month ago. Patient reports he went to his dentist and was told he needed his wisdom tooth removed. Reports they gave him ibuprofen would help with the symp toms but he ran out of the medication. Denies any fevers. Patient in no acute distress. No swelling noted to face. We will be discharged to follow up with PCP and dentist. Differential diagnosis: Tooth decay, to they, abscess Need for hospitalization: Patient does not meet criteria for hospitalization. There are no social concerns with this patient. DX & DISP Disposition: Discharge Departure Impression: Primary Impression: Toothache Condition: Stable Scripts Ibuprofen (Ibuprofen 800 mg Tab) 800 Mg Tab 800 MG PO Q8H PRN for fever or pain for 30 Days, #30 TAB 0 Refills Prov: ABNER TREVINO MESS ATTENDANT 01/07/25 Additional Instructions: Please follow up with your dentist. Take medications as prescribed. If symptoms worsen please return to ER. FOLLOW-UP WITH PRIMARY CARE PROVIDER IN 1 TO 2 DAYS. TAKE MEDICATIONS DIRECTED HERE IN THE EMERGENCY ROOM. OKAY TO CONTINUE HOME MEDICATIONS UNLESS OTHERWISE DISCUSSED DURING YOUR VISIT IN THE EMERGENCY ROOM TODAY. RETURN TO YOUR NEAREST EMERGENCY ROOM IF SYMPTOMS WORSEN OR IF THERE IS NO IMPROVEMENT. CALL 911 IF YOU NEED IMMEDIATE ASSISTANCE. TAKE TYLENOL OR MOTRIN [id number] NEEDED AND IF NO CONTRAINDICATIONS ARE PRESENT. INCREASE ORAL HYDRATION. A WOUND CULTURE OR URINE CULTURE WAS ORDERED HERE IN THE EMERGENCY ROOM DEPARTMENT PLEASE FOLLOW-UP WITH PRIMARY CARE PROVIDER AND ADVISE THEM TO GET REPEAT PORTS FROM OUR FACILITY. IF YOU HAD ANY GEMMA WRAP/SPLINTS THAT WERE APPLIED HERE, PLEASE DO NOT REMOVE THEM UNTIL YOU SEE YOUR PRIMARY CARE OR SPECIALTY. Referrals: SELF,REFERRAL (PCP) Time of Disposition: 22:19 I have reviewed the case, and I agree with, Diagnosis and Plan ABNER TREVINO [facility] Jan 07, 2025 22:21
== END 2025-01-07 22:25 | disposition home or self-care (01) ==
LOC: EDH 21:36
DX: K08.89 Other specified disorders of teeth and supporting structures (principal); E66.01 Morbid (severe) obesity due to excess calories; Z79.1 Long term (current) use of non-steroidal anti-inflammatories (NSAID); Z79.899 Other long term (current) drug therapy
CPT/HCPCS: 99283; 96372; J1885

== ENCOUNTER 2025-03-20 15:16 | Emergency (ER) | payer BC ==
[~2025-03-20] VITALS: Ht 152.4 cm; Wt 135.2 kg
[~2025-03-20 15:16] MED LIST changes: +IBUP-2077 PO
--- NOTE | 2025-03-20 16:28 | EKG ---
[facility] Test Date: 2025-03-20 Test Time: 16:24:42 Pat Name: TOÑITO RUST Department: ED Room: Gender: M Apprentice Painter Neckties: 0723 : 1985 Requested By: FRANCO RAY Order Number: [id number] Reading MD: Bryan Baeza Measurements Intervals [place] Rate: 95 P: 20 AL: 172 QRS: -32 QRSD: 121 T: 26 QT: 357 QTc: 449 Interpretive Statements Sinus rhythm Left ventricular hypertrophy ST elev, probable normal early repol pattern Compared to ECG 02/05/2023 12:15:30 Myocardial infarct finding no longer present ST (T wave) deviation still present Electronically Signed On 03-21-2025 17:32:46 CDT by Bryan Baeza Please click the below link to view image of tracing.
[2025-03-20 16:37] LABS: RAPID GROUP A STREP negative (NEGATIVE)
[2025-03-20 16:46] LABS: INFLUENZA TYPE A Negative For Type A (NEGATIVE); INFLUENZA TYPE B Negative For Type B (NEGATIVE)
--- NOTE | 2025-03-20 17:01 | HMCIMG ---
Exam Type: CHEST 1VW Clinical Information: cough Comparison: None Findings: The lungs are clear of infiltrates. The heart is normal in size. The bony and soft tissue structures of the chest are unremarkable. Impression: Clear lungs.
[2025-03-20 17:06] LABS: SARS-CoV-2, RNA, NAAT NEGATIVE SARS CoV-2 (NEGATIVE)
--- NOTE | 2025-03-20 17:25 | ERN ---
ED Note History of Present Illness Stated Complaint: COUGH, CONGESTION Chief Complaint: Cough Time Seen by MD: 15:31 Time Seen by Midlevel: 15:36 Dictation: 39-year-old male with no past medical history coming in complaining of cough and congestion for three days. Denies any chest pain, shortness a breath, headaches. Allergies: Coded Allergies: No Known Drug Allergies (Unverified Allergy, Unknown, 04/11/19) Home Meds Active Scripts Ibuprofen (Ibuprofen 800 mg Tab) 800 Mg Tab, 800 MG PO Q8H PRN for fever or pain for 30 Days, #30 TAB 0 Refills Prov:ABNER TREVINO NUCLEAR SPECTROSCOPIST 01/07/25 Ketorolac Tromethamine (Toradol) 10 Mg Tab, 1 TAB PO TID for pain for 5 Days, #15 TAB 0 Refills Prov:GABBY ROCHE MD 12/05/24 Orphenadrine Citrate (Norflex) 100 Mg Srtab, 1 TAB PO [id number] PRN for pain for 30 Days, #60 TAB 0 Refills Prov:GABBY ROCHE MD 12/05/24 Mupirocin (Mupirocin Ointment) 2 % Oint, 1 APPL TP BID, #1 TUBE 0 Refills Prov:LESLEY RAMIREZ NUCLEAR SPECTROSCOPIST 09/28/23 D-Methorphan Hb/P-Epd HCl/Bpm (Bromfed Dm Cough Syrup) 2 Mg-30 Mg-10 Mg/5 Ml Syrup, 10 ML PO Q6HPRN PRN for COUGH/COLD SYMPTOMS, #240 ML Prov:TOSIN CARRILLO NUCLEAR SPECTROSCOPIST 09/03/23 Past Medical History Past Medical History: No Pertinent History Additional Past Medical Hx: MORBID OBESITY Surgical History: None Surgical History Other: L EAR SURGERY Family History: CAD, DM Social History: Negative, Lives with family, Other Review of System Dictation Constitutional: Negative for fever,chills, and weight loss Eyes: Negative for injury, pain,redness, and discharge ENT: Negative for injury,pain or swelling Cardiovascular: Negative for chest pain, palpitations, and edema Respiratory: Complaining of cough and congestion Abdomen/GI: Negative for abdominal pain, nausea, vomiting, diarrhea, and constipation Back: Negative for injury and pain : Negative for injury, bleeding and discharge MS/Extremity: Negative for injury and deformity Skin: Negative for rash, and discoloration Neuro: Negative for headache, weakness, numbness, tingling, and seizure Psych: Negative for suicide ideation, homicidal ideation, and hallucinations Review of Systems: was completed Initial Vital Sign VS Vital Signs Date Time Temp Pulse Resp B/P (MAP) Pulse Ox O2 Delivery O2 Flow Rate FiO2 03/20/25 15:17 98.8 94 16 105/50 94 0 Physical Exam Dictation General: awake, alert, NAD Head/Face: Normocephalic, atraumatic Eyes: PERRL, EOMI, vision at baseline ENT: oral cavity clear, TMs clear, no signs of infection Neck: Trachea midline, supple, no nuchal rigidity Cardiovascular: RRR, normal S1/S2, No MRGs, no JVD Respiratory: CTAB, no respiratory distress, No rales or wheezes Abdomen: Soft, non-tender, non-distended, normal bowel sounds, no guarding or rebound. Skin: Warm, dry, normal turgor, no rash MS/Extremity: Pulses equal, no cyanosis, neurovascular intact, FROM Neuro: COAx4, GCS 15, strength 5/5, CN 2-12 intact, normal cerebellar exam, normal gait, Psych: Normal behavior, mood, and affect normal Results (Laboratory/Radiology) Laboratory/Radiology Laboratory Tests Test 03/20/25 16:20 Influenza Type A Antigen Negative For Type A Influenza Type B Antigen Negative For Type B SARS-CoV-2, RNA, NAAT NEGATIVE SARS CoV-2 Group A Streptococcus Rapid negative (NEGATIVE) Labs Reviewed?: Yes X-RAY Comment: [place] [id number] [address] IMAGING REPORT Signed PATIENT: TOÑITO RUST MR#: [id number] : 1985 SEX: M AGE: 39 LOCATION: [facility] ORDER 12 STATUS: REG ER REPORT#: [id number] SERVICE 161 REASON: cough ORDERING PHYSICIAN: FRANCO RAY NP PROCEDURE: CXR1VW - CHEST 1VW Exam Type: CHEST 1VW Clinical Information: cough Comparison: None Findings: The lungs are clear of infiltrates. The heart is normal in size. The bony and soft tissue structures of the chest are unremarkable. Impression: Clear lungs. DICTATED BY: JUAN CARLOS SAUCEDO MD DATE: 03/20/251657 ELECTRONICALLY SIGNED BY: JUAN CARLOS SAUCEDO MD DATE: 03/20/25 170 ED Course ED Course Orders Procedure Category Date Status Time Covid Rna Naat LAB 03/20/25 Complete 16:12 Influenza Type A & B, LAB 03/20/25 Complete Rapid 16:12 Rapid (Group A Strep) LAB 03/20/25 Complete 16:12 Chest 1vw RAD 03/20/25 Resulted 16:12 12 Lead Ekg Tracing- EKG 03/20/25 Complete Technical 16:12 Vital Signs Date Time Temp Pulse Resp B/P (MAP) Pulse Ox O2 Delivery O2 Flow Rate FiO2 03/20/25 15:17 98.8 94 16 105/50 94 0 Medical Decision Making MDM MDM: 39-year-old male with no past medical history coming in complaining of cough and congestion for three days. Denies any chest pain, shortness a breath, headaches. Swabs are negative. Discussed with the patient on findings. Educated that this is probably viral and he is to take [id number] symptomatic medications like Tylenol, Motrin, decongestants and cough medication. Patient verbalized understanding, answered all questions. Differential diagnosis: COVID, influenza, strep, viral syndrome, pneumonia Rationale: Tests considered and ordered secondary to shared decision making include: Previous outside records reviewed: Old ER visits. Risk of complication and/or morbidity or mortality of patient management: None Medications-Per medication reconciliation Need for hospitalization: Patient does not meet criteria for hospitalization. Need for emergency major/minor surgery: No There are no social concerns with this patient. Prescription drug management Prescriptions will include symptomatic care Patient's prior external medical records from other ER visits were reviewed by me as indicated. Prior testing and results from previous visits were reviewed. Prior tests were taken into account with medical decision making and resource utilization, independent historian/historians were used to obtain complete medical history. I independently interpreted the test that were performed, results were reviewed by me and considered findings on radiology if ordered. Medical management and examination interpretation discussions were had by me with other qualified healthcare professionals as indicated for the patient's care. DX & DISP Disposition: Discharge Departure Impression: Primary Impression: Viral URI with cough Condition: Stable Referrals: SELF,REFERRAL (PCP) Time of Disposition: 17:20 I have reviewed the case, and I agree with, Diagnosis and Plan FRANCO RAY NP March 20, 2025 17:25
[2025-03-20 17:42] VITALS: BP 106/59; PULSE 88; RESP 16; TEMP 98.8; O2SAT 95
== END 2025-03-20 17:44 | disposition home or self-care (01) ==
LOC: EDH 15:16
DX: J06.9 Acute upper respiratory infection, unspecified (principal); R05.9 Cough, unspecified; B97.89 Other viral agents as the cause of diseases classified elsewhere; E66.01 Morbid (severe) obesity due to excess calories; Z79.1 Long term (current) use of non-steroidal anti-inflammatories (NSAID); Z20.822 Contact with and (suspected) exposure to COVID-19
CPT/HCPCS: 71045; 87635; 87804; 87880; 93005; 99284

== ENCOUNTER 2025-04-24 11:59 | Emergency (ER) | payer BC ==
[~2025-04-24] VITALS: Ht 167.6 cm; Wt 136.1 kg
[2025-04-24 12:30] LABS: RAPID GROUP A STREP negative (NEGATIVE)
[2025-04-24 12:35] LABS: SARS-CoV-2, RNA, NAAT NEGATIVE SARS CoV-2 (NEGATIVE)
[2025-04-24 12:40] LABS: INFLUENZA TYPE A Negative For Type A (NEGATIVE); INFLUENZA TYPE B Negative For Type B (NEGATIVE)
[2025-04-24 14:08] VITALS: BP 121/75; PULSE 77; RESP 16; TEMP 97.9; O2SAT 95
[2025-04-24] MEDS ORDERED: METH4TAB3 PO (14:09)
[2025-04-24] MEDS ORDERED: AZIT250T9 PO (14:09)
[2025-04-24] MEDS ORDERED: BENZ-39 PO (14:09)
--- NOTE | 2025-04-24 14:09 | ERN ---
General Chief Complaint: Cough Stated Complaint: COUGH, CONGESTION, SORE THROAT Time Seen by MD: 12:12 Time Seen by Midlevel: 12:12 Source: patient History of Present Illness Initial Comments The patient is a 39-year-old morbidly obese male with no significant past medical history presenting to the emergency department for evaluation of cough and congestion that started yesterday and progressively worsened. Denies any fever, chills, sick contacts, or any other symptoms at this time Allergies: Coded Allergies: No Known Drug Allergies (Unverified Allergy, Unknown, 04/11/19) Home Meds Active Scripts Ibuprofen (Ibuprofen 800 mg Tab) 800 Mg Tab, 800 MG PO Q8H PRN for fever or pain for 30 Days, #30 TAB 0 Refills Prov:ABNER TREVINO OIL WELL ENGINEER 01/07/25 Ketorolac Tromethamine (Toradol) 10 Mg Tab, 1 TAB PO TID for pain for 5 Days, #15 TAB 0 Refills Prov:GABBY ROCHE MD 12/05/24 Orphenadrine Citrate (Norflex) 100 Mg Srtab, 1 TAB PO [id number] PRN for pain for 30 Days, #60 TAB 0 Refills Prov:GABBY ROCHE MD 12/05/24 Mupirocin (Mupirocin Ointment) 2 % Oint, 1 APPL TP BID, #1 TUBE 0 Refills Prov:LESLEY RAMIREZ OIL WELL ENGINEER 09/28/23 D-Methorphan Hb/P-Epd HCl/Bpm (Bromfed Dm Cough Syrup) 2 Mg-30 Mg-10 Mg/5 Ml Syrup, 10 ML PO Q6HPRN PRN for COUGH/COLD SYMPTOMS, #240 ML Prov:TOSIN CARRILLO OIL WELL ENGINEER 09/03/23 Past Medical History Past Medical History: No Pertinent History Medical History Other: MORBID OBESITY Past Surgical History: None Surgical History Other: L EAR SURGERY Family History Family History: CAD, DM Social History Social History: Negative, Lives with family, Other ROS Dictation CONSTITUTIONAL: Negative except for HPI HEAD/FACE: Negative except for HPI EENT: Negative except for HPI RESPIRATORY: Negative except for HPI GASTROINTESTINAL/ABDOMINAL: Negative except for HPI GENITOURINARY: Negative except for HPI MUSCULOSKELETAL: Negative except for HPI INTEGUMENTARY: Negative except for HPI NEUROLOGICAL/PSYCH: Negative except for HPI HEMATOLOGIC/LYMPHATIC: Negative except for HPI All Systems Negative, Except as noted above. 13 point review of systems assessed and all negative except for above. Physical Exam Physical Exam Dictation Vital Signs reviewed General Appearance: Alert, oriented x 3, no acute distress, well developed, nourished. Head and Face: non-traumatic. Eyes: PERRL, pink conjunctivas, eyelid no trauma, anterior chamber with arcus senilis. Ears: Pinnas intact and no signs of trauma or erythema ear canals clear and no discharge TM no erythema Nose: No discharge, no bleeding. Oropharynx: Mouth normal, tongue pink, pharynx clear,no erythema, tonsils no exudates, no abscesses noted, mucous membrane moist Neck: Supple, non-tender, no thyromegaly, no masses, no JVD, no bruits Breast:Deferred Chest:No tenderness, no crepitus, no paradoxical movement, no retractions Lungs:Clear, well-ventilated, symmetric, no rales, no wheezing, no rhonchi, no stridor, good breath sounds bilaterally Heart: Regular rate, regular rhythm, no murmur, no gallops Vascular: no peripheral edema, Abdomen: Soft, positive bowel sounds, nondistended, no guarding, nontender, no rebound, no masses no hepatomegaly, no splenomegaly, no Bui's sign, no hernias. Rectal: Deferred Genital: Deferred Neurological: Normal speech, motor function intact, sensory function intact Musculoskeletal: Neck nontender, full range of motion, back nontender, full range of motion, Extremities: nontender, full range of motion Skin: Color pink, dry, no turgor, no rash, no lacerations, no abrasions, no contusions. Lymphatic: Deferred Results Laboratory and Microbiology Lab and Micro Result Laboratory Tests Test 04/24/25 12:06 Influenza Type A Antigen Negative For Type A Influenza Type B Antigen Negative For Type B SARS-CoV-2, RNA, NAAT NEGATIVE SARS CoV-2 Group A Streptococcus Rapid negative (NEGATIVE) Labs Reviewed?: Yes MDM MDM: Differential diagnosis: Pneumonia, bronchitis, pneumonitis There are no social concerns with this patient. Prescription drug management Prescriptions will include: Medrol pack, azithromycin Medical management and examination interpretation discussions were had by me with other qualified healthcare professionals as indicated for the patient's care. ED Course Orders Procedure Category Date Status Time Covid Rna Naat LAB 04/24/25 Complete 12:02 Influenza Type A & B, LAB 04/24/25 Complete Rapid 12:02 Rapid (Group A Strep) LAB 04/24/25 Complete 12:02 Chest 1vw RAD 04/24/25 Taken 12:02 Vital Signs Date Time Temp Pulse Resp B/P (MAP) Pulse Ox O2 Delivery O2 Flow Rate FiO2 04/24/25 12:41 97.9 82 16 116/73 98 Room Air* 0 21 04/24/25 12:00 97.9 82 16 116/73 95 Room Air 0 DX & DISP Disposition: Discharge Departure Impression: Primary Impression: Bronchitis Condition: Stable Scripts Benzonatate (Tessalon Perles) 100 Mg Cap 100 MG PO TID for cough for 5 Days, #15 CAP 0 Refills Prov: JAVAD CARR 04/24/25 Methylprednisolone (Medrol) 4 Mg Tab.ds.pk 1 TAB PO AD for 6 Days, #21 TAB 0 Refills 6 on day 1 then reduce by one tablet daily until gone Prov: JAVAD CARR 04/24/25 Azithromycin (Azithromycin) 250 Mg Tablet 1 TAB PO AD for 5 Days, #6 TAB 0 Refills 2 the first day followed by 1 for days 2-5 Prov: JAVAD CARR 04/24/25 Referrals: SELF,REFERRAL (PCP) I have reviewed the case, and I agree with, Diagnosis and Plan I performed the substantive portion of the visit. I have reviewed and personally made and approve the management plan that is documented in the note by myself or the POOL. I acknowledge for responsibility for the patient's m anagement plan. JAVAD CARR Apr 24, 2025 14:09
--- NOTE | 2025-04-24 14:19 | HMCIMG ---
EXAM: CR Chest, 1 View. CLINICAL HISTORY: SOB W/ COUGH COMPARISON: None provided. FINDINGS: LUNGS: Patchy airspace opacity in the left lower lobe which is likely infectious. Otherwise, clear lungs. PLEURAL SPACES: No evidence of pleural effusion or pneumothorax. MEDIASTINUM: The cardiomediastinal silhouette is within normal limits. BONES: No acute osseous abnormality. IMPRESSION: Patchy airspace opacity in the left lower lobe which is likely infectious. /[place]
== END 2025-04-24 14:10 | disposition home or self-care (01) ==
LOC: EDH 11:59
DX: J40 Bronchitis, not specified as acute or chronic (principal); E66.01 Morbid (severe) obesity due to excess calories; Z79.1 Long term (current) use of non-steroidal anti-inflammatories (NSAID); Z20.822 Contact with and (suspected) exposure to COVID-19
CPT/HCPCS: 71045; 87635; 87804; 87880; 99283

== ENCOUNTER 2025-10-17 11:50 | Emergency (ER) | payer BC ==
[~2025-10-17] VITALS: Ht 167.6 cm; Wt 136.1 kg
[~2025-10-17 11:50] MED LIST changes: +AZIT250T9 PO; +BENZ-39 PO; +METH4TAB3 PO
--- NOTE | 2025-10-17 12:06 | ERN ---
ED Note History of Present Illness Stated Complaint: LEFT EARACHE Chief Complaint: Earache Time Seen by MD: 11:52 Dictation: PATIENT IS A 40-YEAR-OLD MALE HERE WITH MULTIPLE COMPLAINTS. HE HAS CENTRAL COMPLAINT OF LEFT EAR PAIN FOR THE LAST 2-3 DAYS. THERE WAS NO HEARING LOSS NO MASTOID PAIN. HE ALSO STATES HE HAS HAD SOME FLUID TO HIS LOWER EXTREMITIES AND EDEMA THAT HE IS CONCERNED ABOUT AND HAS A FLU-LIKE SYMPTOMS TO INCLUDE FRONTAL HEADACHE, CLEAR RHINITIS AND MILD SORE THROAT. HE STATES HE HAS A AN INTERMITTENT COUGH IS NONPRODUCTIVE. NO CHEST PAIN NO BACK PAIN. Allergies: Coded Allergies: No Known Drug Allergies (Unverified Allergy, Unknown, 04/11/19) Home Meds Active Scripts Benzonatate (Tessalon Perles) 100 Mg Cap, 100 MG PO TID for cough for 5 Days, #15 CAP 0 Refills Prov:JAVAD CARR PAC 04/24/25 Methylprednisolone (Medrol) 4 Mg Tab.ds.pk, 1 TAB PO AD for 6 Days, #21 TAB 0 Refills 6 on day 1 then reduce by one tablet daily until gone Prov:JAVAD CARR PAC 04/24/25 Azithromycin (Azithromycin) 250 Mg Tablet, 1 TAB PO AD for 5 Days, #6 TAB 0 Re fills 2 the first day followed by 1 for days 2-5 Prov:JAVAD CARR [facility] 04/24/25 Ibuprofen (Ibuprofen 800 mg Tab) 800 Mg Tab, 800 MG PO Q8H PRN for fever or pain for 30 Days, #30 TAB 0 Refills Prov:ABNER TREVINO RELIABILITY TECHNICIAN 01/07/25 Ketorolac Tromethamine (Toradol) 10 Mg Tab, 1 TAB PO TID for pain for 5 Days, #15 TAB 0 Refills Prov:GABBY ROCHE MD 12/05/24 Orphenadrine Citrate (Norflex) 100 Mg Srtab, 1 TAB PO [id number] PRN for pain for 30 Days, #60 TAB 0 Refills Prov:GABBY ROCHE MD 12/05/24 Mupirocin (Mupirocin Ointment) 2 % Oint, 1 APPL TP BID, #1 TUBE 0 Refills Prov:LESLEY RAMIREZ RELIABILITY TECHNICIAN 09/28/23 D-Methorphan Hb/P-Epd HCl/Bpm (Bromfed Dm Cough Syrup) 2 Mg-30 Mg-10 Mg/5 Ml Syrup, 10 ML PO Q6HPRN PRN for COUGH/COLD SYMPTOMS, #240 ML Prov:TOSIN CARRILLO RELIABILITY TECHNICIAN 09/03/23 Past Medical History Past Medical History: No Pertinent History Additional Past Medical Hx: MORBID OBESITY Surgical History: None Surgical History Other: L EAR SURGERY Family History: CAD, DM Social History: Negative, Lives with family, Other RN Note Reviewed/Agreed w/PFSH: Yes Review of System Dictation CONSTITUTIONAL: NEGATIVE EXCEPT FOR HPI FLU-LIKE SYMPTOMS HEAD/FACE: NEGATIVE EXCEPT FOR HPI EENT: NEGATIVE EXCEPT FOR HPI RESPIRATORY: NEGATIVE EXCEPT FOR HPI EDEMA LOWER EXTREMITIES R HPI GENITOURINARY: NEGATIVE EXCEPT FOR HPI MUSCULOSKELETAL: NEGATIVE EXCEPT FOR HPI INTEGUMENTARY: NEGATIVE EXCEPT FOR HPI NEUROLOGICAL/PSYCH: NEGATIVE EXCEPT FOR HPI HEMATOLOGIC/LYMPHATIC: NEGATIVE EXCEPT FOR HPI ALL SYSTEMS NEGATIVE, EXCEPT NOTED ABOVE. 13 POINT REVIEW OF SYSTEMS ASSESSED AND ALL NEGATIVE EXCEPT FOR ABOVE. Initial Vital Sign VS Vital Signs Date Time Temp Pulse Resp B/P (MAP) Pulse Ox O2 Delivery O2 Flow Rate FiO2 10/17/25 11:50 98.1 77 18 109/61 99 Room Air 10/17/25 12:19 0 21 Physical Exam Dictation VITAL SIGNS REVIEWED GENERAL APPEARANCE: ALERT, ORIENTED X 3, NO ACUTE DISTRESS, WELL DEVELOPED, NOURISHED. OBESE HEAD AND FACE: NON-TRAUMATIC. EYES: PERRL, PINK CONJUNCTIVAS, EYELID NO TRAUMA, ANTERIOR CHAMBER WITH ARCUS SENILIS. EARS: PINNAS INTACT AND NO SIGNS OF TRAUMA OR ERYTHEMA EAR CANALS CLEAR AND NO DISCHARGE TM NO ERYTHEMA NOSE: NO DISCHARGE, NO BLEEDING. OROPHARYNX: MOUTH NORMAL, TONGUE PINK, PHARYNX CLEAR,NO ERYTHEMA, TONSILS NO EXUDATES, NO ABSCESSES NOTED, MUCOUS MEMBRANE MOIST NECK: SUPPLE, NON-TENDER, NO THYROMEGALY, NO MASSES, NO JVD, NO BRUITS BREAST:DEFERRED CHEST:NO TENDERNESS, NO CREPITUS, NO PARADOXICAL MOVEMENT, NO RETRACTIONS LUNGS:CLEAR, WELL-VENTILATED, SYMMETRIC, NO RALES, NO WHEEZING, NO RHONCHI, NO STRIDOR, GOOD BREATH SOUNDS BILATERALLY HEART: REGULAR RATE, REGULAR RHYTHM, NO MURMUR, NO GALLOPS VASCULAR: 1+ PERIPHERAL EDEMA, ABDOMEN: SOFT, POSITIVE BOWEL SOUNDS, NONDISTENDED, NO GUARDING, NONTENDER, NO REBOUND, NO MASSES NO HEPATOMEGALY, NO SPLENOMEGALY, NO PATTERSON'S SIGN, NO HERNIAS. RECTAL: DEFERRED GENITAL: DEFERRED NEUROLOGICAL: NORMAL SPEECH, MOTOR FUNCTION INTACT, SENSORY FUNCTION INTACT MUSCULOSKELETAL: NECK NONTENDER, FULL RANGE OF MOTION, BACK NONTENDER, FULL RANGE OF MOTION, EXTREMITIES: NONTENDER, FULL RANGE OF MOTION SKIN: COLOR PINK, DRY, NO TURGOR, NO RASH, NO LACERATIONS, NO ABRASIONS, NO CONTUSIONS. LYMPHATIC: DEFERRED Results (Laboratory/Radiology) Laboratory/Radiology Laboratory Tests Test 10/17/25 12:00 Influenza Type A Antigen Negative For Type A Influenza Type B Antigen Negative For Type B SARS-CoV-2 Antigen (Rapid) PRESUMPTIVE NEGATIVE Group A Streptococcus Rapid negative (NEGATIVE) Labs Reviewed?: Yes ED Course ED Course Orders Procedure Category Date Status Time Covid19 (Sars Antigen LAB 10/17/25 Complete Rapid) 11:53 Influenza Type A & B, LAB 10/17/25 Complete Rapid 11:53 Rapid (Group A Strep) LAB 10/17/25 Complete 11:53 Ibuprofen 800 Mg Tab PHA 10/17/25 Complete (Motrin) 12:30 Current Medications Medications (Trade) Dose Ordered Sig/Tamar Route PRN Reason Start Time Stop Time Status Last Admin Dose Admin Ibuprofen (moTRIN) 800 mg ONCE ONCE PO 10/17/25 12:30 10/17/25 12:31 DC 10/17/25 12:37 Vital Signs Date Time Temp Pulse Resp B/P (MAP) Pulse Ox O2 Delivery O2 Flow Rate FiO2 10/17/25 12:19 98.1 77 18 109/61 99 Room Air* 0 21 10/17/25 11:50 98.1 77 18 109/61 99 Room Air 1345/VIRAL WORKUP NEGATIVE. PATIENT WILL BE TREATED FOR DEPENDENT EDEMA WITH LASIX TOLD TO GO SEE HIS PRIMARY CARE DOCTOR Medical Decision Making MDM MEDICAL DECISION-MAKING BASED ON SWABS FOR FLU COVID AND STREP ALL ARE NEGATIVE PATIENT WILL BE DISCHARGED HOME WITH DEPENDENT EDEMA PRESCRIBED SOME LASIX AND GIVEN ELEVATION INSTRUCTIONS SEE HIS PRIMARY CARE DOCTOR DX & DISP Disposition: Discharge Departure Impression: Primary Impression: Viral URI with cough Additional Impression: Dependent edema Condition: Stable Scripts Furosemide (Lasix) 20 Mg Tablet 1 TAB PO DAILY for 5 Days, #5 TAB 0 Refills Prov: NIGHAT BRODERICK 10/17/25 Additional Instructions: FOLLOW-UP WITH PRIMARY CARE PROVIDER IN 1 TO 2 DAYS. TAKE MEDICATIONS DIRECTED HERE IN THE EMERGENCY ROOM. OKAY TO CONTINUE HOME MEDICATIONS UNLESS OTHERWISE DISCUSSED DURING YOUR VISIT IN THE EMERGENCY ROOM TODAY. RETURN TO YOUR NEAREST EMERGENCY ROOM IF SYMPTOMS WORSEN OR IF THERE IS NO IMPROVEMENT. CALL 911 IF YOU NEED IMMEDIATE ASSISTANCE. TAKE TYLENOL OR MOTRIN OVER-THE- COUNTER NEEDED AND IF NO CONTRAINDICATIONS ARE PRESENT. INCREASE ORAL HYDRATION. A WOUND CULTURE OR URINE CULTURE WAS ORDERED HERE IN THE EMERGENCY ROOM DEPARTMENT PLEASE FOLLOW-UP WITH PRIMARY CARE PROVIDER AND ADVISE THEM TO GET REPEAT PORTS FROM OUR FACILITY. IF YOU HAD ANY GEMMA WRAP/SPLINTS THAT WERE APPLIED HERE, PLEASE DO NOT REMOVE THEM UNTIL YOU SEE YOUR PRIMARY CARE OR SPECIALTY. TAKE LASIX DAILY DIRECTED UNTIL GONE. ELEVATE YOUR LEGS MUCH POSSIBLE. SEE YOUR PRIMARY CARE DOCTOR FOR FOLLOW UP Referrals: SELF,REFERRAL (PCP) Time of Disposition: 13:48 I have reviewed the case, and I agree with, Diagnosis and Plan NIGHAT BRODERICKP Oct 17, 2025 12:06
[2025-10-17 12:15] LABS: RAPID GROUP A STREP negative (NEGATIVE)
[2025-10-17 12:19] VITALS: BP 109/61; PULSE 77; RESP 18; TEMP 98; O2SAT 99
[2025-10-17 12:25] LABS: COVID19 (SARS ANTIGEN RAPID) PRESUMPTIVE NEGATIVE (NEGATIVE)
[2025-10-17 12:27] LABS: INFLUENZA TYPE A Negative For Type A (NEGATIVE); INFLUENZA TYPE B Negative For Type B (NEGATIVE)
[2025-10-17] MEDS ORDERED: FURO-152 PO (13:49)
== END 2025-10-17 13:51 | disposition home or self-care (01) ==
LOC: EDH 11:50
DX: J06.9 Acute upper respiratory infection, unspecified (principal); R60.0 Localized edema; E66.01 Morbid (severe) obesity due to excess calories; Z79.1 Long term (current) use of non-steroidal anti-inflammatories (NSAID); Z68.42 Body mass index [BMI] 45.0-49.9, adult; Z79.899 Other long term (current) drug therapy; Z98.890 Other specified postprocedural states; Z20.822 Contact with and (suspected) exposure to COVID-19
CPT/HCPCS: 87426; 87804; 87880; 99283